=== PATIENT | female | born 1970 ===

== ENCOUNTER 2018-03-08 09:50 | Outpatient (CLI) | payer OTHER | END 2018-03-08 09:55 | disposition home or self-care (01) | LOC: SONOGRAMA 09:50 | DX: E04.2 Nontoxic multinodular goiter (principal) ==

== ENCOUNTER 2022-07-06 10:10 | Outpatient (CLI) | payer OTHER | END 2022-07-06 10:15 | disposition home or self-care (01) | LOC: SONOGRAMA 10:10 | PROVIDERS: ATTEND Pathology Anatomic Pathology | DX: D34 Benign neoplasm of thyroid gland (principal); E04.9 Nontoxic goiter, unspecified; E04.2 Nontoxic multinodular goiter ==